=== PATIENT | male | born 1995 | race Two or more races ===

== ENCOUNTER 2018-04-27 15:48 | Emergency (ER) | payer MEDICARE, MEDICAID ==
[~2018-04-27] VITALS: Ht 162.6 cm; Wt 115.2 kg
[~2018-04-27 15:48] MED LIST: NORPTMEDS CO
[2018-04-27 15:56] VITALS: BP 108/69
== END 2018-04-27 17:44 | disposition home or self-care (01) ==
LOC: ER 15:52
DX: H66.92 Otitis media, unspecified, left ear (principal); J03.90 Acute tonsillitis, unspecified

== ENCOUNTER 2021-09-09 12:06 | Emergency (ER) | payer MEDICAID, MEDICARE, OTHER ==
[~2021-09-09] VITALS: Ht 157.5 cm; Wt 97.5 kg
[2021-09-09] MEDS ORDERED: IBUP800T27 PO (13:59)
[2021-09-09] MEDS ORDERED: KETOROLAC TROMETH 60MG/2ML VIAL IM ONE (14:00)
[2021-09-09 15:18] VITALS: BP 113/58
== END 2021-09-09 15:17 | disposition home or self-care (01) ==
LOC: ER 12:06 → EDBD 12:06 → ER 15:16
DX: M23.91 Unspecified internal derangement of right knee (principal); E66.01 Morbid (severe) obesity due to excess calories; Z68.39 Body mass index [BMI] 39.0-39.9, adult
CPT/HCPCS: 73562; 96372; 99283; J1885

== ENCOUNTER 2021-09-21 09:15 | Emergency (ER) | payer OTHER ==
[~2021-09-21] VITALS: Ht 160 cm; Wt 113.4 kg
[~2021-09-21 09:15] MED LIST changes: +IBUP800T27 PO
== END 2021-09-21 13:25 | disposition left against medical advice (07) ==
LOC: EDBD 09:15 → ER 09:15
DX: M25.561 Pain in right knee (principal); E66.9 Obesity, unspecified; Z53.29 Procedure and treatment not carried out because of patient's decision for other reasons; Z68.41 Body mass index [BMI] 40.0-44.9, adult